=== PATIENT | male | born 1990 | race Two or more races ===

== ENCOUNTER 2017-06-22 15:21 | Emergency (ER) | payer MEDICAID | END 2017-06-22 17:15 | disposition left against medical advice (07) | LOC: ER 15:34 | DX: R51 Headache (principal); Z53.21 Procedure and treatment not carried out due to patient leaving prior to being seen by health care provider ==

== ENCOUNTER 2019-04-09 13:10 | Emergency (ER) | payer MEDICAID ==
[~2019-04-09] VITALS: Ht 175.3 cm; Wt 79.4 kg
[2019-04-09 13:19] VITALS: BP 111/68
== END 2019-04-09 16:36 | disposition left against medical advice (07) ==
LOC: ER 13:10
DX: R10.9 Unspecified abdominal pain (principal); Z53.21 Procedure and treatment not carried out due to patient leaving prior to being seen by health care provider